=== PATIENT | female | born 1940 | race Caucasian/White ===

== ENCOUNTER 2021-10-21 23:00 | Inpatient (IN) | payer MEDICARE ==
[~2021-10-21] VITALS: Ht 162.6 cm; Wt 44.9 kg
[~2021-10-21 23:00] MED LIST: ALDACTONE25 MG PO; ANTIVERT 12.512.5 MG PO; CYMBALTA 30 MG30 MG PO; DESYREL 50 MG T50 MG PO; DILANTIN100 MG PO; ECOTRIN81 MG PO; ELIQUIS 2.5 MG2.5 MG PO; ENULOSE10 GM/15 M PO; FEOSOL325 MG PO; FISH OIL 1,0001 EACH PO; FISH OIL 1,2001 EACH PO; FOLIC ACID0.4 MG PO; GEODON40 MG PO; KLONOPIN TAB 00.5 MG PO; KLOR-CON M2020 MEQ PO; LASIX20 MG PO; LASIX40 MG PO; MAGOX 400400 MG PO; MELATONIN5 M2 PO; MEROPENEM1 GM IV; MICROZIDE12.5 MG PO; NITRO-DUR1 EAC1 TOP; NITROSTAT0.4 MG SL; NORCO 10-325 T1 EACH PO; OMEPRAZOLE20 M1 PO; PHENERGAN 12.12.5 M1 PO; REQUIP1 MG PO; ROXICODONE TAB 55 MG PO; SYNTHROID25 MCG PO; THEREMS-M1 EACH PO; TOPAMAX50 MG PO; TOPROL XL50 MG PO; TYLENOL 325MG325 MG PO; ULTRAM50 MG PO; VITAMIN B-1100 MG PO; VITAMIN C 500500 MG PO; XARELTO 15 MG T15 MG PO; ZANAFLEX4 M1 PO; ZYLOPRIM 100 M100 MG PO
[2021-10-21 23:17] LABS: HEMOGLOBIN 16.5 gm/dl (12.3-15.3); RED BLOOD COUNT 5.24 M/UL (4.00-5.10); WHITE BLOOD COUNT 10.9 K/UL (4.5-11.0)
[2021-10-21 23:56] LABS: BUN/CREATININE RATIO 53 (0-10)
[2021-10-22] MEDS ORDERED: NEURONTIN 100100 MG PO (09:35)
[2021-10-22] MEDS ORDERED: LIPITOR TAB 2020 MG PO (09:36)
[2021-10-22] MEDS ORDERED: AUGMENTIN 875-1 EACH PO (13:27)
[2021-10-22] MEDS ORDERED: CYPROHEPTADINE H4 MG PO (13:28)
[2021-10-22] MEDS ORDERED: BISACODYL10 MG PR (13:30)
[2021-10-22] MEDS ORDERED: FLEET ENEMA 13133 ML PR (13:32)
[2021-10-22] MEDS ORDERED: MILK OF MA400 MG/5 M PO (13:35)
[2021-10-22] MEDS ORDERED: NYSTATIN1 EAC6 TOP (13:36)
[2021-10-22] MEDS ORDERED: OXYCODONE HCL10 MG PO (13:37)
[2021-10-22] MEDS ORDERED: ZOLOFT25 MG PO (13:40)
[2021-10-22] MEDS ORDERED: DOCUSATE SODIU100 M1 PO (16:46)
[2021-10-22] MEDS ORDERED: DEPAKOTE SPRIN125 MG PO (16:48)
[2021-10-22] MEDS ORDERED: ATIVAN0.5 MG PO (16:56)
[2021-10-22] MEDS ORDERED: ZOLOFT100 MG PO (16:58)
[2021-10-23 10:03] LABS: RED BLOOD COUNT 4.25 M/UL (4.00-5.10); WHITE BLOOD COUNT 11.2 K/UL (4.5-11.0)
[2021-10-23 10:04] LABS: HEMOGLOBIN 13.7 gm/dl (12.3-15.3)
[2021-10-24 06:28] LABS: HEMOGLOBIN 12.7 gm/dl (12.3-15.3); RED BLOOD COUNT 3.93 M/UL (4.00-5.10); WHITE BLOOD COUNT 9.6 K/UL (4.5-11.0)
[2021-10-24 07:06] LABS: BUN/CREATININE RATIO 35 (0-10)
[2021-10-24 20:07] LABS: BUN/CREATININE RATIO 26 (0-10)
[2021-10-25 10:14] LABS: HEMOGLOBIN 12.7 gm/dl (12.3-15.3); RED BLOOD COUNT 4.03 M/UL (4.00-5.10)
[2021-10-25 10:16] LABS: WHITE BLOOD COUNT 13.5 K/UL (4.5-11.0)
[2021-10-25 10:41] LABS: BUN/CREATININE RATIO 23 (0-10)
[2021-10-26 09:45] LABS: HEMOGLOBIN 11.7 gm/dl (12.3-15.3); RED BLOOD COUNT 3.63 M/UL (4.00-5.10); WHITE BLOOD COUNT 10.4 K/UL (4.5-11.0)
[2021-10-26 10:20] LABS: BUN/CREATININE RATIO 16 (0-10)
[2021-10-26] MEDS ORDERED: OMNICEF 300 MG300 MG PO (13:09)
[2021-10-26] MEDS ORDERED: POTASSIUM20 MEQ/15 PO (13:09)
[2021-10-26] MEDS ORDERED: ELIQUIS 2.5 MG2.5 MG PO ×3 (13:09→14:33)
[2021-10-26] MEDS ORDERED: AUGMENTIN 875-1 EACH PO (14:43)
== END 2021-10-26 19:06 | DRG 640 ==
LOC: ER1 23:00 → 3 EAST 10-22 01:37 → CDU 10-22 01:37 → M/S 10-22 01:37 → 3 EAST 10-22 08:35 → M/S 10-22 18:55
PROVIDERS: Internal Medicine; Internal Medicine Nephrology; Physician Assistant; ADMIT Internal Medicine
DX: E87.0 Hyperosmolality and hypernatremia (principal); R53.2 Functional quadriplegia; Z20.822 Contact with and (suspected) exposure to COVID-19; N17.9 Acute kidney failure, unspecified; E44.0 Moderate protein-calorie malnutrition; Z68.1 Body mass index [BMI] 19.9 or less, adult; E86.0 Dehydration; F03.90 Unspecified dementia, unspecified severity, without behavioral disturbance, psychotic disturbance, mood disturbance, and anxiety; N28.1 Cyst of kidney, acquired; Z66 Do not resuscitate; E03.9 Hypothyroidism, unspecified; E78.5 Hyperlipidemia, unspecified; I11.0 Hypertensive heart disease with heart failure; I50.9 Heart failure, unspecified; R13.12 Dysphagia, oropharyngeal phase; F41.9 Anxiety disorder, unspecified; M81.0 Age-related osteoporosis without current pathological fracture; E83.42 Hypomagnesemia; R73.9 Hyperglycemia, unspecified; E87.8 Other disorders of electrolyte and fluid balance, not elsewhere classified; D64.9 Anemia, unspecified; E87.6 Hypokalemia; G25.81 Restless legs syndrome; J40 Bronchitis, not specified as acute or chronic; E78.00 Pure hypercholesterolemia, unspecified; T50.1X5A Adverse effect of loop [high-ceiling] diuretics, initial encounter; K59.00 Constipation, unspecified; I48.91 Unspecified atrial fibrillation; Z74.01 Bed confinement status; Z79.01 Long term (current) use of anticoagulants; Z87.19 Personal history of other diseases of the digestive system; Z95.2 Presence of prosthetic heart valve; Z51.5 Encounter for palliative care; Z90.710 Acquired absence of both cervix and uterus; Z98.891 History of uterine scar from previous surgery; Z95.0 Presence of cardiac pacemaker; Z95.5 Presence of coronary angioplasty implant and graft; Z88.5 Allergy status to narcotic agent; Z87.820 Personal history of traumatic brain injury
CPT/HCPCS: 0240U; 36415; 51702; 70450; 71045; 80048; 80053; 80076; 80307; 81001; 82550; 82553; 83605; 83690; 83735; 83880; 84132; 84295; 84439; 84443; 84484; 85025; 85027; 87086; 93005; 99285; J3480; P9047